=== PATIENT | female | born 1995 | race Caucasian/White ===

== ENCOUNTER 2024-04-24 14:45 | Emergency (ER) | payer OTHER ==
[~2024-04-24] VITALS: Ht 154.9 cm; Wt 92.5 kg
[2024-04-24 14:53] VITALS: BP 120/75; TEMP 97.8; O2SAT 98
[2024-04-24] MEDS ORDERED: IBUP-1114 PO (15:12)
[2024-04-24] MEDS: BOOSTRIX VACCINE (TETANUS/DIPHTH/ACEL. PERTUSSIS) 0.5ML SYR IM ONE (17:07)
[2024-04-24] MEDS ORDERED: AMOX500T2 PO (17:07)
== END 2024-04-24 17:17 | disposition home or self-care (01) ==
LOC: M ED 14:45
DX: S60.372A Other superficial bite of left thumb, initial encounter (principal); Y04.1XXA Assault by human bite, initial encounter; Z79.2 Long term (current) use of antibiotics; Z79.1 Long term (current) use of non-steroidal anti-inflammatories (NSAID); Z23 Encounter for immunization; Y92.009 Unspecified place in unspecified non-institutional (private) residence as the place of occurrence of the external cause; Y99.9 Unspecified external cause status